=== PATIENT | female | born 1945 | race Caucasian/White ===

== ENCOUNTER 2021-03-05 11:00 | Inpatient (IN) | payer OTHER ==
[~2021-03-05] VITALS: Ht 167.6 cm; Wt 74.7 kg
[2021-03-05 11:22] LABS: BASOPHILS % (AUTO) 0.4 % (0.0-5.0); EOSINOPHILS % (AUTO) 3.5 % (0.0-8.0); HEMATOCRIT 40.5 % (36-48); LYMPHOCYTES % (AUTO) 8.7 % (21.0-51.0); MEAN CORPUSCULAR HGB CONC 30.6 g/dL (32.0-36.0); MEAN CORPUSCULAR VOLUME 88.2 fL (79-99); MONOCYTES % (AUTO) 4.9 % (3.0-13.0); NEUTROPHILS % (AUTO) 81.9 % (40.0-77.0); PLATELET COUNT (AUTO) 277 K/uL (130-400); RED BLOOD CELL COUNT(AUTO) 4.59 MIL/uL (4.00-5.50); RED CELL DISTRIBUTION WIDTH 16.8 % (11.0-15.5); WHITE BLOOD COUNT (AUTO) 7.2 K/uL (4.8-10.8)
[2021-03-05 11:26] LABS: ABG BASE EXCESS 4.1 mmol/L (-2.0-3.0); ABG HCO3 27.9 mmol/L (21.0-28.0); ABG OXYGEN SATURATION 82.1 % (95.0-99.0); ABG PCO2 39 mmHg (32-45)
[2021-03-05 11:36] LABS: ALBUMIN 2.8 g/dL (3.5-5.0); CREATININE 1.1 mg/dL (0.5-1.5); POTASSIUM 3.4 mmol/L (3.5-5.1)
[2021-03-05 11:38] LABS: BILIRUBIN,TOTAL 0.7 mg/dL (0.2-1.0); MAGNESIUM 1.4 mg/dL (1.80-2.40)
[2021-03-05 11:42] LABS: B-TYPE NATRIURETIC PEPTIDE 262 pg/mL (0-100)
[2021-03-05 11:54] LABS: INR 1.04 (0.85-1.15); PROTHROMBIN TIME 11.3 SEC (9.6-11.6)
[2021-03-05 11:55] LABS: PARTIAL THROMBOPLASTIN TIME 25.4 SEC (26.3-35.5)
[2021-03-05] MEDS ORDERED: INSULIN HUMULIN R 100 UNIT/ML 3ML IV SCH (12:00)
[2021-03-05] MEDS ORDERED: FUROSEMIDE 40MG VIAL IV SCH (12:00)
[2021-03-05 12:22] VITALS: BP 141/64
[2021-03-05] MEDS ORDERED: IOHEXOL-350 75 ML VIAL IV ONE (13:12)
[2021-03-05 13:29] VITALS: BP 126/65
[2021-03-05] MEDS ORDERED: INSULIN GLARGINE 100 UNITS/ML 10 ML VIAL SQ SCH (14:00)
[2021-03-05 15:05] LABS: APPEARANCE,URINE Clear (CLEAR); BILIRUBIN,URINE Negative (NEGATIVE); COLOR,URINE Yellow (YELLOW); GLUCOSE, URINE (UA) >=1000 mg/dL (NEGATIVE); KETONES,URINE Negative (NEGATIVE); LEUKOCYTE ESTERASE ,URINE Negative (NEGATIVE); NITRATE,URINE Negative (NEGATIVE); OCCULT BLOOD,URINE Negative (NEGATIVE); PH,URINE 6.5 (5.0-8.0); PROTEIN,URINE POS 1+ mg/dL (NEGATIVE)
[2021-03-05 15:16] LABS: BACTERIA,URINE Few /HPF (None Seen); WBC,URINE 0-1 /HPF (0-1)
[2021-03-05 15:17] LABS: MUCUS,URINE Moderate LPF (None Seen); SQUAMOUS EPITHELIAL CELL,UR Few /HPF (0-2)
[2021-03-05] MEDS: LISINOPRIL 40 MG TABLET PO SCH (16:00)
[2021-03-05] MEDS ORDERED: INSULIN HUMULIN R 100 UNIT/ML 3ML SQ SCH (16:30)
[2021-03-05] MEDS: ASPIRIN 81 MG EC TAB PO SCH (17:29)
[2021-03-05] MEDS: METOPROLOL SUCCINATE 50 MG TAB.SR.24H PO SCH (17:30)
[2021-03-05] MEDS: RIVAROXABAN 20 MG TABLET PO SCH (17:30)
[2021-03-05] MEDS: INSULIN HUMULIN R 100 UNIT/ML 3ML SQ SCH (18:00)
[2021-03-05 19:30] VITALS: BP 128/27
[2021-03-05] MEDS: FUROSEMIDE 40MG VIAL IV SCH (20:00)
[2021-03-05] MEDS: ATORVASTATIN 20 MG TABLET PO SCH (21:16)
[2021-03-05 23:01] VITALS: BP 109/48
[2021-03-06] VITALS (9 sets, daily range): BP systolic 103–149; BP diastolic 48–74
[2021-03-06] MEDS: FUROSEMIDE 40MG VIAL IV SCH ×2 (01:00→17:25)
[2021-03-06] MEDS: INSULIN HUMULIN R 100 UNIT/ML 3ML SQ SCH ×5 (02:30→21:48)
[2021-03-06 07:03] LABS: BASOPHILS % (AUTO) 0.3 % (0.0-5.0); EOSINOPHILS % (AUTO) 7.5 % (0.0-8.0); LYMPHOCYTES % (AUTO) 22.9 % (21.0-51.0); MEAN CORPUSCULAR HGB CONC 31.1 g/dL (32.0-36.0); MEAN CORPUSCULAR VOLUME 86.9 fL (79-99); MONOCYTES % (AUTO) 5.4 % (3.0-13.0); NEUTROPHILS % (AUTO) 63.7 % (40.0-77.0); PLATELET COUNT (AUTO) 240 K/uL (130-400); RED BLOOD CELL COUNT(AUTO) 4.26 MIL/uL (4.00-5.50); RED CELL DISTRIBUTION WIDTH 16.6 % (11.0-15.5); WHITE BLOOD COUNT (AUTO) 5.7 K/uL (4.8-10.8)
[2021-03-06 07:16] LABS: CREATININE 0.9 mg/dL (0.5-1.5); MAGNESIUM 1.3 mg/dL (1.80-2.40)
[2021-03-06 07:19] LABS: POTASSIUM 2.7 mmol/L (3.5-5.1)
[2021-03-06] MEDS ORDERED: POTASSIUM CHLORIDE 10% ELIXIR 20 MEQ/15 ML UDCUP PO PRN (07:30)
[2021-03-06] MEDS ORDERED: POTASSIUM CHLORIDE 20MEQ/100ML 100 ML IV PRN (07:30)
[2021-03-06] MEDS: LISINOPRIL 40 MG TABLET PO SCH (10:54)
[2021-03-06] MEDS: ASPIRIN 81 MG EC TAB PO SCH (10:54)
[2021-03-06] MEDS: METOPROLOL SUCCINATE 50 MG TAB.SR.24H PO SCH (10:55)
[2021-03-06] MEDS: KCL 20 MEQ ERTAB PO PRN (10:57)
[2021-03-06 12:53] LABS: MAGNESIUM 1.3 mg/dL (1.80-2.40); POTASSIUM 3.2 mmol/L (3.5-5.1)
[2021-03-06] MEDS: MAGNESIUM 2GM PREMIX 50ML 50 ML IV PRN (14:06)
[2021-03-06] MEDS: RIVAROXABAN 20 MG TABLET PO SCH (14:11)
[2021-03-06] MEDS ORDERED: INSULIN GLARGINE 100 UNITS/ML 10 ML VIAL SQ SCH (21:00)
[2021-03-06] MEDS: ATORVASTATIN 20 MG TABLET PO SCH (21:47)
[2021-03-06] MEDS: INSULIN GLARGINE 100 UNITS/ML 10 ML VIAL SQ SCH (21:49)
[2021-03-07] VITALS (7 sets, daily range): BP systolic 119–142; BP diastolic 52–63
[2021-03-07] MEDS: MAGNESIUM 2GM PREMIX 50ML 50 ML IV PRN ×2 (00:14→20:34)
[2021-03-07] MEDS: KCL 20 MEQ ERTAB PO PRN ×3 (00:14→12:02)
[2021-03-07 05:20] LABS: BASOPHILS % (AUTO) 0.3 % (0.0-5.0); EOSINOPHILS % (AUTO) 5.3 % (0.0-8.0); HEMATOCRIT 40.6 % (36-48); LYMPHOCYTES % (AUTO) 17.4 % (21.0-51.0); MEAN CORPUSCULAR HEMOGLOBIN 27.2 pg (27.0-33.0); MEAN CORPUSCULAR HGB CONC 30.5 g/dL (32.0-36.0); MONOCYTES % (AUTO) 4.4 % (3.0-13.0); NEUTROPHILS % (AUTO) 72.3 % (40.0-77.0); PLATELET COUNT (AUTO) 281 K/uL (130-400); RED BLOOD CELL COUNT(AUTO) 4.56 MIL/uL (4.00-5.50); RED CELL DISTRIBUTION WIDTH 16.4 % (11.0-15.5); WHITE BLOOD COUNT (AUTO) 6.6 K/uL (4.8-10.8)
[2021-03-07 05:36] LABS: HEMOGLOBIN A1C 8.3 % (4.0-6.0)
[2021-03-07 05:38] LABS: ALBUMIN 2.4 g/dL (3.5-5.0); BILIRUBIN,TOTAL 0.5 mg/dL (0.2-1.0); MAGNESIUM 2.1 mg/dL (1.80-2.40); TOTAL PROTEIN, SERUM 6.3 g/dL (6.0-8.3)
[2021-03-07 05:47] LABS: B-TYPE NATRIURETIC PEPTIDE 338 pg/mL (0-100)
[2021-03-07] MEDS: FUROSEMIDE 40MG VIAL IV SCH ×2 (06:04→17:57)
[2021-03-07] MEDS: INSULIN HUMULIN R 100 UNIT/ML 3ML SQ SCH ×7 (06:06→20:34)
[2021-03-07] MEDS: METOPROLOL SUCCINATE 50 MG TAB.SR.24H PO SCH (09:48)
[2021-03-07] MEDS: LISINOPRIL 40 MG TABLET PO SCH (09:48)
[2021-03-07] MEDS: ASPIRIN 81 MG EC TAB PO SCH (09:48)
[2021-03-07] MEDS: RIVAROXABAN 20 MG TABLET PO SCH (09:49)
[2021-03-07] MEDS ORDERED: ONDANSETRON 4MG INJ ONE (11:59)
[2021-03-07] MEDS ORDERED: ONDANSETRON 4MG INJ IVP PRN (12:00)
[2021-03-07] MEDS ORDERED: ASPI-1197 PO (13:30)
[2021-03-07] MEDS ORDERED: ATOR40TA71 PO (13:30)
[2021-03-07] MEDS ORDERED: TRAZ150T79 PO (13:30)
[2021-03-07] MEDS ORDERED: LEVO88CA4 PO (13:30)
[2021-03-07] MEDS ORDERED: FURO20TA4 PO (13:30)
[2021-03-07] MEDS ORDERED: ERGO50CA PO (13:30)
[2021-03-07] MEDS ORDERED: VENL75TA89 PO (13:30)
[2021-03-07] MEDS ORDERED: AMLO-258 PO (13:30)
[2021-03-07] MEDS ORDERED: LISI40TA9 PO (13:30)
[2021-03-07] MEDS ORDERED: PANT40TA PO (13:30)
[2021-03-07] MEDS ORDERED: TRAZODONE HCL 100 MG TABLET PO PRN (14:30)
[2021-03-07 16:41] LABS: MAGNESIUM 1.7 mg/dL (1.80-2.40); POTASSIUM 4.1 mmol/L (3.5-5.1)
[2021-03-07] MEDS: ATORVASTATIN 20 MG TABLET PO SCH (20:29)
[2021-03-07] MEDS: INSULIN GLARGINE 100 UNITS/ML 10 ML VIAL SQ SCH (20:29)
[2021-03-08 04:17] VITALS: BP 123/63
[2021-03-08 05:21] LABS: BASOPHILS % (AUTO) 0.3 % (0.0-5.0); EOSINOPHILS % (AUTO) 5.9 % (0.0-8.0); HEMATOCRIT 41.2 % (36-48); LYMPHOCYTES % (AUTO) 23.2 % (21.0-51.0); MEAN CORPUSCULAR HEMOGLOBIN 26.9 pg (27.0-33.0); MEAN CORPUSCULAR HGB CONC 31.1 g/dL (32.0-36.0); MEAN CORPUSCULAR VOLUME 86.7 fL (79-99); MONOCYTES % (AUTO) 4.5 % (3.0-13.0); NEUTROPHILS % (AUTO) 65.9 % (40.0-77.0); PLATELET COUNT (AUTO) 270 K/uL (130-400); RED BLOOD CELL COUNT(AUTO) 4.75 MIL/uL (4.00-5.50); RED CELL DISTRIBUTION WIDTH 16.2 % (11.0-15.5); WHITE BLOOD COUNT (AUTO) 6.4 K/uL (4.8-10.8)
[2021-03-08 05:33] LABS: ALBUMIN 2.6 g/dL (3.5-5.0); BILIRUBIN,TOTAL 0.4 mg/dL (0.2-1.0); MAGNESIUM 1.8 mg/dL (1.80-2.40); POTASSIUM 3.5 mmol/L (3.5-5.1); TOTAL PROTEIN, SERUM 6.7 g/dL (6.0-8.3)
[2021-03-08] MEDS: LEVOTHYROXINE 88 MCG TABLET PO SCH (06:00)
[2021-03-08] MEDS: MAGNESIUM 2GM PREMIX 50ML 50 ML IV PRN (06:00)
[2021-03-08] MEDS: FUROSEMIDE 40MG VIAL IV SCH ×2 (06:00→16:45)
[2021-03-08] MEDS: KCL 20 MEQ ERTAB PO PRN ×2 (06:01→08:23)
[2021-03-08] MEDS: INSULIN HUMULIN R 100 UNIT/ML 3ML SQ SCH ×7 (06:02→20:34)
[2021-03-08 07:39] VITALS: BP 103/41
[2021-03-08 08:20] VITALS: BP 112/61
[2021-03-08] MEDS: LISINOPRIL 40 MG TABLET PO SCH (08:22)
[2021-03-08] MEDS: RIVAROXABAN 20 MG TABLET PO SCH (08:22)
[2021-03-08] MEDS: VENLAFAXINE HCL 75 MG TAB PO SCH (08:22)
[2021-03-08] MEDS: ASPIRIN 81 MG EC TAB PO SCH (08:22)
[2021-03-08] MEDS: METOPROLOL SUCCINATE 50 MG TAB.SR.24H PO SCH (08:22)
[2021-03-08] MEDS ORDERED: ERGOCALCIFEROL (VITAMIN D2) 50,000 UNIT CAPSULE PO SCH (09:00)
[2021-03-08 11:32] VITALS: BP 141/66
[2021-03-08] MEDS ORDERED: METO50TA9 PO (12:06)
[2021-03-08] MEDS ORDERED: RIVA20TA PO (12:06)
[2021-03-08] MEDS ORDERED: POTASSIUM CHLORIDE 10MEQ SR TAB PO SCH (12:30)
[2021-03-08] MEDS ORDERED: MAGNESIUM OXIDE 400 MG TABLET PO SCH (12:30)
[2021-03-08 15:29] VITALS: BP 114/77
[2021-03-08 20:24] VITALS: BP 134/61
[2021-03-08] MEDS: ATORVASTATIN 20 MG TABLET PO SCH (20:33)
[2021-03-08] MEDS: INSULIN GLARGINE 100 UNITS/ML 10 ML VIAL SQ SCH (20:35)
[2021-03-09] VITALS (7 sets, daily range): BP systolic 130–149; BP diastolic 59–74
[2021-03-09 04:44] LABS: BASOPHILS % (AUTO) 0.4 % (0.0-5.0); EOSINOPHILS % (AUTO) 6.5 % (0.0-8.0); HEMATOCRIT 36.5 % (36-48); LYMPHOCYTES % (AUTO) 23.9 % (21.0-51.0); MEAN CORPUSCULAR HEMOGLOBIN 26.8 pg (27.0-33.0); MEAN CORPUSCULAR HGB CONC 30.7 g/dL (32.0-36.0); MEAN CORPUSCULAR VOLUME 87.3 fL (79-99); MONOCYTES % (AUTO) 5.9 % (3.0-13.0); NEUTROPHILS % (AUTO) 63.1 % (40.0-77.0); PLATELET COUNT (AUTO) 226 K/uL (130-400); RED BLOOD CELL COUNT(AUTO) 4.18 MIL/uL (4.00-5.50); RED CELL DISTRIBUTION WIDTH 16.3 % (11.0-15.5); WHITE BLOOD COUNT (AUTO) 5.2 K/uL (4.8-10.8)
[2021-03-09 05:04] LABS: ALBUMIN 2.3 g/dL (3.5-5.0); BILIRUBIN,TOTAL 0.3 mg/dL (0.2-1.0); CREATININE 0.9 mg/dL (0.5-1.5); MAGNESIUM 1.7 mg/dL (1.80-2.40); POTASSIUM 4.1 mmol/L (3.5-5.1)
[2021-03-09] MEDS: MAGNESIUM 2GM PREMIX 50ML 50 ML IV PRN (05:23)
[2021-03-09] MEDS: FUROSEMIDE 40MG VIAL IV SCH (05:24)
[2021-03-09] MEDS: INSULIN HUMULIN R 100 UNIT/ML 3ML SQ SCH ×7 (05:25→19:58)
[2021-03-09] MEDS: LEVOTHYROXINE 88 MCG TABLET PO SCH (05:25)
[2021-03-09] MEDS: FUROSEMIDE 40 MG TABLET PO SCH ×3 (08:00→20:40)
[2021-03-09] MEDS: ASPIRIN 81 MG EC TAB PO SCH (09:27)
[2021-03-09] MEDS: LISINOPRIL 40 MG TABLET PO SCH (09:28)
[2021-03-09] MEDS: RIVAROXABAN 20 MG TABLET PO SCH (09:28)
[2021-03-09] MEDS: VENLAFAXINE HCL 75 MG TAB PO SCH (09:28)
[2021-03-09] MEDS: METOPROLOL SUCCINATE 50 MG TAB.SR.24H PO SCH (09:28)
[2021-03-09] MEDS: ATORVASTATIN 20 MG TABLET PO SCH (20:39)
[2021-03-09] MEDS: INSULIN GLARGINE 100 UNITS/ML 10 ML VIAL SQ SCH (20:40)
[2021-03-10 04:00] VITALS: BP 131/61
[2021-03-10 04:16] LABS: BASOPHILS % (AUTO) 0.5 % (0.0-5.0); EOSINOPHILS % (AUTO) 5.9 % (0.0-8.0); HEMATOCRIT 36.4 % (36-48); LYMPHOCYTES % (AUTO) 27.4 % (21.0-51.0); MEAN CORPUSCULAR HEMOGLOBIN 26.9 pg (27.0-33.0); MEAN CORPUSCULAR HGB CONC 31.3 g/dL (32.0-36.0); MEAN CORPUSCULAR VOLUME 85.8 fL (79-99); MONOCYTES % (AUTO) 5.7 % (3.0-13.0); NEUTROPHILS % (AUTO) 60.3 % (40.0-77.0); PLATELET COUNT (AUTO) 234 K/uL (130-400); RED BLOOD CELL COUNT(AUTO) 4.24 MIL/uL (4.00-5.50)
[2021-03-10 04:26] LABS: MAGNESIUM 1.4 mg/dL (1.80-2.40); POTASSIUM 3.6 mmol/L (3.5-5.1)
[2021-03-10] MEDS: INSULIN HUMULIN R 100 UNIT/ML 3ML SQ SCH ×4 (05:21→13:58)
[2021-03-10] MEDS: MAGNESIUM 2GM PREMIX 50ML 50 ML IV PRN (05:25)
[2021-03-10] MEDS: LEVOTHYROXINE 88 MCG TABLET PO SCH (05:25)
[2021-03-10] MEDS: KCL 20 MEQ ERTAB PO PRN ×2 (05:25→10:43)
[2021-03-10] MEDS ORDERED: FURO40TA7 PO (07:37)
[2021-03-10 08:00] VITALS: BP 139/70
[2021-03-10] MEDS: ASPIRIN 81 MG EC TAB PO SCH (10:43)
[2021-03-10] MEDS: VENLAFAXINE HCL 75 MG TAB PO SCH (10:44)
[2021-03-10] MEDS: FUROSEMIDE 40 MG TABLET PO SCH (10:44)
[2021-03-10] MEDS: LISINOPRIL 40 MG TABLET PO SCH (10:45)
[2021-03-10] MEDS: METOPROLOL SUCCINATE 50 MG TAB.SR.24H PO SCH (10:46)
[2021-03-10] MEDS: RIVAROXABAN 20 MG TABLET PO SCH (10:46)
[2021-03-10 11:00] VITALS: BP 131/48
== END 2021-03-10 15:15 | disposition home or self-care (01) | DRG 291 ==
LOC: EDH 11:00 → EDHIP 13:46 → 4CH 03-06 11:30
PROVIDERS: ADMIT Internal Medicine; ATTEND Internal Medicine
DX: I11.0 Hypertensive heart disease with heart failure (principal); J96.01 Acute respiratory failure with hypoxia; G83.4 Cauda equina syndrome; I50.23 Acute on chronic systolic (congestive) heart failure; E87.6 Hypokalemia; E83.42 Hypomagnesemia; E78.5 Hyperlipidemia, unspecified; E11.65 Type 2 diabetes mellitus with hyperglycemia; I48.0 Paroxysmal atrial fibrillation; E11.51 Type 2 diabetes mellitus with diabetic peripheral angiopathy without gangrene; I25.10 Atherosclerotic heart disease of native coronary artery without angina pectoris; I25.2 Old myocardial infarction; Z79.899 Other long term (current) drug therapy; Z87.891 Personal history of nicotine dependence; Z95.1 Presence of aortocoronary bypass graft; Z95.5 Presence of coronary angioplasty implant and graft; R79.89 Other specified abnormal findings of blood chemistry; Z88.1 Allergy status to other antibiotic agents; Z88.8 Allergy status to other drugs, medicaments and biological substances; Z20.822 Contact with and (suspected) exposure to COVID-19
CPT/HCPCS: 36415; 36600; 71045; 71275; 80048; 80053; 81001; 82010; 82550; 82803; 82948; 83036; 83735; 83880; 84132; 84145; 84484; 85025; 85378; 85610; 85730; 87088; 87635; 93005; 93306; 93356; 94760; 97039; 99291; C9803; G0378; J1815; J1940; J2405; J3475; Q9967

== ENCOUNTER 2021-08-12 14:23 | Observation (INO) | payer OTHER ==
[~2021-08-12] VITALS: Ht 167.6 cm; Wt 72.9 kg
[~2021-08-12 14:23] MED LIST: AMLO-258 PO; ASPI-1197 PO; ATOR40TA71 PO; ERGO50CA PO; FURO40TA7 PO; LEVO88CA4 PO; LISI40TA9 PO; METO50TA9 PO; PANT40TA PO; RIVA20TA PO; TRAZ150T79 PO; VENL75TA89 PO
[2021-08-12] MEDS ORDERED: 0.9%NACL 1000ML 1,000 ML IV ONE (14:30)
[2021-08-12 14:51] LABS: BASOPHILS % (AUTO) 0.3 % (0.0-5.0); EOSINOPHILS % (AUTO) 1.8 % (0.0-8.0); HEMATOCRIT 42.9 % (36-48); LYMPHOCYTES % (AUTO) 23.1 % (21.0-51.0); MEAN CORPUSCULAR HEMOGLOBIN 30.7 pg (27.0-33.0); MEAN CORPUSCULAR HGB CONC 32.6 g/dL (32.0-36.0); MEAN CORPUSCULAR VOLUME 94.1 fL (79-99); MONOCYTES % (AUTO) 4.6 % (3.0-13.0); PLATELET COUNT (AUTO) 164 K/uL (130-400); RED BLOOD CELL COUNT(AUTO) 4.56 MIL/uL (4.00-5.50); RED CELL DISTRIBUTION WIDTH 14.4 % (11.0-15.5); WHITE BLOOD COUNT (AUTO) 6.1 K/uL (4.8-10.8)
[2021-08-12 15:09] LABS: INR 1.11 (0.85-1.15)
[2021-08-12 15:13] LABS: ALBUMIN 3.5 g/dL (3.5-5.0); BILIRUBIN,TOTAL 0.6 mg/dL (0.2-1.0); CREATININE 1.2 mg/dL (0.5-1.5); POTASSIUM 4.2 mmol/L (3.5-5.1); TOTAL PROTEIN, SERUM 6.8 g/dL (6.0-8.3)
[2021-08-12 15:16] LABS: B-TYPE NATRIURETIC PEPTIDE 179 pg/mL (0-100)
[2021-08-12] MEDS ORDERED: INSULIN HUMULIN R 100 UNIT/ML 3ML ONE (15:59)
[2021-08-12] MEDS ORDERED: INSULIN HUMULIN R 100 UNIT/ML 3ML IV ONE (16:00)
[2021-08-12 16:14] LABS: APPEARANCE,URINE Clear (CLEAR); BILIRUBIN,URINE Negative (NEGATIVE); COLOR,URINE Yellow (YELLOW); GLUCOSE, URINE (UA) >=1000 mg/dL (NEGATIVE); KETONES,URINE Negative (NEGATIVE); LEUKOCYTE ESTERASE ,URINE Small (NEGATIVE); NITRATE,URINE Negative (NEGATIVE); OCCULT BLOOD,URINE Trace (NEGATIVE); PROTEIN,URINE POS 2+ mg/dL (NEGATIVE)
[2021-08-12 16:44] LABS: BACTERIA,URINE Few /HPF (None Seen); SQUAMOUS EPITHELIAL CELL,UR Few /HPF (0-2)
[2021-08-12] MEDS ORDERED: NITROGLYCERIN 0.4 MG SL TAB SL PRN (18:00)
[2021-08-12] MEDS ORDERED: ASPIRIN 325MG TAB PO ONE (18:00)
[2021-08-12 18:21] LABS: HEMOGLOBIN A1C 10.5 % (4.0-6.0)
[2021-08-12] MEDS ORDERED: TRAZODONE HCL 50 MG TAB PO PRN (18:30)
[2021-08-12] MEDS ORDERED: INSULIN GLARGINE 100 UNITS/ML 10 ML VIAL SQ SCH (21:00)
[2021-08-12] MEDS: ATORVASTATIN 40 MG TABLET PO SCH (22:51)
[2021-08-12] MEDS: CARVEDILOL 25 MG TABLET PO SCH (22:51)
[2021-08-12] MEDS: INSULIN HUMULIN R 100 UNIT/ML 3ML SQ SCH (22:52)
[2021-08-13] VITALS (8 sets, daily range): BP systolic 118–211; BP diastolic 63–127
[2021-08-13] MEDS ORDERED: VENL-63 PO (02:26)
[2021-08-13] MEDS ORDERED: CARV25TA PO (02:26)
[2021-08-13] MEDS ORDERED: CALC-866 PO (02:26)
[2021-08-13] MEDS ORDERED: PREVAGEN PO (02:26)
[2021-08-13] MEDS ORDERED: FOLI0.8T3 PO (02:26)
[2021-08-13] MEDS ORDERED: FERR-82 PO (02:26)
[2021-08-13] MEDS ORDERED: ACETAMINOPHEN 325 MG TAB ONE (02:50)
[2021-08-13] MEDS ORDERED: ACETAMINOPHEN 325 MG TAB PO ONE (03:00)
[2021-08-13] MEDS ORDERED: INSU100V SQ (05:40)
[2021-08-13] MEDS ORDERED: INSLAN SQ (05:40)
[2021-08-13] MEDS ORDERED: LEVOTHYROXINE 88 MCG TABLET ONE (05:48)
[2021-08-13] MEDS: LEVOTHYROXINE 88 MCG TABLET PO SCH (05:50)
[2021-08-13] MEDS: INSULIN HUMULIN R 100 UNIT/ML 3ML SQ SCH ×4 (05:52→20:43)
[2021-08-13 07:55] LABS: BASOPHILS % (AUTO) 0.6 % (0.0-5.0); EOSINOPHILS % (AUTO) 2.7 % (0.0-8.0); HEMATOCRIT 42.3 % (36-48); LYMPHOCYTES % (AUTO) 37.5 % (21.0-51.0); MEAN CORPUSCULAR HEMOGLOBIN 30.6 pg (27.0-33.0); MEAN CORPUSCULAR HGB CONC 32.2 g/dL (32.0-36.0); MEAN CORPUSCULAR VOLUME 95.3 fL (79-99); MONOCYTES % (AUTO) 6.4 % (3.0-13.0); NEUTROPHILS % (AUTO) 52.4 % (40.0-77.0); PLATELET COUNT (AUTO) 170 K/uL (130-400); RED BLOOD CELL COUNT(AUTO) 4.44 MIL/uL (4.00-5.50); RED CELL DISTRIBUTION WIDTH 14.5 % (11.0-15.5); WHITE BLOOD COUNT (AUTO) 5.2 K/uL (4.8-10.8)
[2021-08-13 08:05] LABS: CREATININE 1.1 mg/dL (0.5-1.5); POTASSIUM 3.9 mmol/L (3.5-5.1)
[2021-08-13] MEDS ORDERED: LISINOPRIL 40 MG TABLET PO SCH (09:00)
[2021-08-13] MEDS ORDERED: LISINOPRIL 10 MG TABLET PO SCH (09:00)
[2021-08-13] MEDS: LISINOPRIL 40 MG TABLET PO SCH (09:29)
[2021-08-13] MEDS: VENLAFAXINE HCL 75 MG TAB PO SCH (09:29)
[2021-08-13] MEDS: FOLIC ACID 1 MG TABLET PO SCH (09:30)
[2021-08-13] MEDS: CARVEDILOL 25 MG TABLET PO SCH ×2 (09:30→21:15)
[2021-08-13] MEDS: ASPIRIN 81MG CHEW TAB PO SCH (09:30)
[2021-08-13] MEDS: PANTOPRAZOLE 40 MG TAB DR PO SCH (09:33)
[2021-08-13] MEDS ORDERED: HYDROCHLOROTHIAZIDE 25 MG TABLET PO SCH (13:00)
[2021-08-13] MEDS: METFORMIN HCL 500 MG TABLET PO SCH (16:01)
[2021-08-13] MEDS: GLIPIZIDE 5 MG TABLET PO SCH (16:01)
[2021-08-13] MEDS: NIFEDIPINE 10 MG CAP PO SCH ×2 (16:58→23:11)
[2021-08-13] MEDS ORDERED: INSULIN GLARGINE 100 UNITS/ML 10 ML VIAL SQ SCH (21:00)
[2021-08-13] MEDS: ATORVASTATIN 40 MG TABLET PO SCH (21:13)
[2021-08-14 00:12] VITALS: BP 122/70
[2021-08-14 04:16] VITALS: BP 105/52
[2021-08-14 04:38] LABS: HEMATOCRIT 41.2 % (36-48); MEAN CORPUSCULAR HEMOGLOBIN 30.4 pg (27.0-33.0); MEAN CORPUSCULAR HGB CONC 33.3 g/dL (32.0-36.0); MEAN CORPUSCULAR VOLUME 91.4 fL (79-99); RED BLOOD CELL COUNT(AUTO) 4.51 MIL/uL (4.00-5.50); RED CELL DISTRIBUTION WIDTH 14.3 % (11.0-15.5); WHITE BLOOD COUNT (AUTO) 6.9 K/uL (4.8-10.8)
[2021-08-14 05:01] LABS: BILIRUBIN,TOTAL 0.5 mg/dL (0.2-1.0); CREATININE 1.1 mg/dL (0.5-1.5); POTASSIUM 3.2 mmol/L (3.5-5.1)
[2021-08-14] MEDS: INSULIN HUMULIN R 100 UNIT/ML 3ML SQ SCH ×2 (06:24→11:11)
[2021-08-14] MEDS: GLIPIZIDE 5 MG TABLET PO SCH (06:42)
[2021-08-14] MEDS: LEVOTHYROXINE 88 MCG TABLET PO SCH (06:42)
[2021-08-14] MEDS ORDERED: MAGNESIUM 2GM PREMIX 50ML 50 ML IV ONE (06:59)
[2021-08-14] MEDS ORDERED: KCL 20 MEQ ERTAB PO SCH (07:00)
[2021-08-14] MEDS ORDERED: MAGNESIUM 2GM PREMIX 50ML 50 ML IV SCH (07:00)
[2021-08-14 07:58] VITALS: BP 128/71
[2021-08-14] MEDS ORDERED: HYDROCHLOROTHIAZIDE 25 MG TABLET PO SCH (09:00)
[2021-08-14] MEDS: PANTOPRAZOLE 40 MG TAB DR PO SCH (09:10)
[2021-08-14] MEDS: NIFEDIPINE 10 MG CAP PO SCH (09:10)
[2021-08-14] MEDS: FOLIC ACID 1 MG TABLET PO SCH (09:10)
[2021-08-14] MEDS: ASPIRIN 81MG CHEW TAB PO SCH (09:11)
[2021-08-14] MEDS: LISINOPRIL 40 MG TABLET PO SCH (09:11)
[2021-08-14] MEDS: METFORMIN HCL 500 MG TABLET PO SCH ×2 (09:11→11:14)
[2021-08-14] MEDS: VENLAFAXINE HCL 75 MG TAB PO SCH (09:11)
[2021-08-14] MEDS: CARVEDILOL 25 MG TABLET PO SCH (09:12)
[2021-08-14 10:30] VITALS: BP 144/56
[2021-08-14] MEDS ORDERED: NIFEDIPINE ER 30 MG TAB PO SCH (10:30)
[2021-08-14] MEDS ORDERED: LISI40TA9 PO (10:39)
[2021-08-14] MEDS ORDERED: VENL-63 PO (10:39)
[2021-08-14] MEDS ORDERED: TRAZ150T79 PO (10:39)
[2021-08-14] MEDS ORDERED: CARV25TA PO (10:39)
[2021-08-14] MEDS ORDERED: ATOR40TA71 PO (10:39)
[2021-08-14] MEDS ORDERED: NIFE-39 PO (10:39)
[2021-08-14] MEDS ORDERED: HYDR25TA PO (10:39)
[2021-08-14] MEDS ORDERED: LEVO88CA4 PO (10:39)
[2021-08-14] MEDS ORDERED: VENL75TA89 PO (10:39)
[2021-08-14] MEDS ORDERED: PANT40TA PO (10:39)
[2021-08-14] MEDS ORDERED: ASPI-1005 PO (10:39)
[2021-08-14] MEDS ORDERED: INSU100V SQ (10:47)
[2021-08-14] MEDS ORDERED: INSLAN SQ (10:47)
[2021-08-14] MEDS ORDERED: RIVA20TA PO (10:47)
== END 2021-08-14 14:15 | disposition home or self-care (01) ==
LOC: EDH 14:23 → EDHIP 17:52 → 4AH 08-13 00:37
PROVIDERS: ADMIT Internal Medicine; ATTEND Internal Medicine
DX: R07.89 Other chest pain (principal); Z20.822 Contact with and (suspected) exposure to COVID-19; I25.10 Atherosclerotic heart disease of native coronary artery without angina pectoris; E11.65 Type 2 diabetes mellitus with hyperglycemia; I12.9 Hypertensive chronic kidney disease with stage 1 through stage 4 chronic kidney disease, or unspecified chronic kidney disease; E11.22 Type 2 diabetes mellitus with diabetic chronic kidney disease; N18.30 Chronic kidney disease, stage 3 unspecified; E78.5 Hyperlipidemia, unspecified; I48.0 Paroxysmal atrial fibrillation; G83.4 Cauda equina syndrome; I51.7 Cardiomegaly; Z95.1 Presence of aortocoronary bypass graft; Z87.891 Personal history of nicotine dependence; Z79.899 Other long term (current) drug therapy; Z79.4 Long term (current) use of insulin; Z86.79 Personal history of other diseases of the circulatory system; Z79.01 Long term (current) use of anticoagulants; Z90.49 Acquired absence of other specified parts of digestive tract; Z91.19 Patient's noncompliance with other medical treatment and regimen
CPT/HCPCS: 36415 ×3; 70450; 71045; 80048; 80053 ×2; 81001; 82948 ×8; 83036; 83735; 83880; 84443; 84484 ×4; 85025 ×2; 85027; 85610; 87635; 93005; 93306; 96361; 96365; 96366; 97161; 99285; G0378 ×43; J1815 ×5; J3475; J7030